=== PATIENT | female | born 1955 | race Caucasian/White ===

== ENCOUNTER → 2023-05-04 07:50 | Outpatient (REF) | payer OTHER, SELFPAY | LOC: RCS 07:50 | PROVIDERS: ATTENDING PHYSICIAN Family Medicine | DX: R06.02 Shortness of breath (principal); R07.9 Chest pain, unspecified | CPT/HCPCS: 93017 ==

== ENCOUNTER → 2024-03-14 14:21 | Outpatient (REF) | payer OTHER, SELFPAY | LOC: RAD 14:21 | PROVIDERS: ATTENDING PHYSICIAN Family Medicine | DX: M54.50 Low back pain, unspecified (principal); M25.551 Pain in right hip | CPT/HCPCS: 72110; 73502 ==

== ENCOUNTER → 2024-04-17 14:55 | Outpatient (REF) | payer OTHER, SELFPAY | LOC: HWWDC 14:55 | PROVIDERS: ATTENDING PHYSICIAN Physician Assistant Medical; FAMILY PHYSICIAN Family Medicine | DX: Z12.31 Encounter for screening mammogram for malignant neoplasm of breast (principal) | CPT/HCPCS: 77063; 77067 ==

== ENCOUNTER → 2024-08-11 15:50 | Outpatient (REF) | payer OTHER, SELFPAY | LOC: MRI 3T 15:50 | PROVIDERS: ATTENDING PHYSICIAN Physician Assistant Medical; FAMILY PHYSICIAN Family Medicine | DX: M54.14 Radiculopathy, thoracic region (principal); M47.896 Other spondylosis, lumbar region | CPT/HCPCS: 72146; 72148 ==